=== PATIENT | female | born 1985 | race Caucasian/White ===

== ENCOUNTER 2018-06-22 16:40 | Emergency (ER) | payer OTHER ==
[2018-06-22 16:51] VITALS: BP 145/89
--- NOTE | 2018-06-22 16:54 | ED Physician Documentation ---
PD HPI SKIN - Stated complaint Stated Complaint: ALLERGIC REACTION - Chief complaint Chief Complaint: Allergic Rx - History obtained from History obtained from: Patient - History of Present Illness Timing - onset: Yesterday Timing - duration: Days (1) Timing - details: Abrupt onset (she had onset of hives and some throat swelling after eating some food that unknowingly had some cinammon in it. She has had similar reactions to cinammon in the past. Usually symptoms resolve in part of a day, but this has persisted.) Location: Bodywide (itching/redness), Other (also with feeling of swelling/tightness in her throat.) Quality / character: Itchy, Discolored (red). No: Vesicular Improved by: No: Benadryl Associated symptoms: Dyspnea. 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) Recently seen: Not recently seen Review of Systems Constitutional: denies: Fever, Myalgias Nose: denies: Rhinorrhea / runny nose, Congestion Throat: denies: Sore throat Cardiac: denies: Chest pain / pressure, Palpitations Respiratory: denies: Cough GI: denies: Abdominal Pain, Nausea, Vomiting, Diarrhea Neurologic: denies: Near syncope, Altered mental status PD PAST MEDICAL HISTORY - Past Medical History Cardiovascular: None Respiratory: None Endocrine/Autoimmune: Other (food allergies) - Present Medications Home Medications: Ambulatory Orders Medication Instructions Recorded Confirmed Cetirizine [ZyrTEC] 10 mg PO DAILY #15 tablet 06/22/18 Dexamethasone [Decadron] 4 mg PO DAILY #5 tablet 06/22/18 Famotidine 20 mg PO DAILY #15 tablet 06/22/18 - Allergies Allergies/Adverse Reactions: Allergies Allergy/AdvReac Type Severity Reaction Status Date / Time cinnamon Allergy Hives Verified 06/22/18 16:51 meperidine [From Demerol] Allergy Unknown Verified 06/22/18 16:51 PD ED PE NORMAL - Vitals Vital signs reviewed: Yes - General General: Alert and oriented X 3, No acute distress, Well developed/nourished - HEENT HEENT: Pharynx benign (minimal swelling of uvula. ) - Neck Neck: Supple, no meningeal sign, No adenopathy - Cardiac Cardiac: RRR, No murmur - Respiratory Respiratory: Clear bilaterally - Abdomen Abdomen: Soft, Non tender - Derm Derm: Normal color, Warm and dry, Other (blotchy redness slightly raised without vesicles c/w hives) - Extremities Extremities: No edema - Neuro Neuro: Alert and oriented X 3, No motor deficit, Normal speech Results - Vitals Vitals: Oxygen O2 Source Room air PD MEDICAL DECISION MAKING - ED course Complexity details: re-evaluated patient (improved symptoms with meds), considered differential, d/w patient Departure - Departure Disposition: 01 Home, Self Care Clinical Impression: Allergic reaction to food Qualifiers: Encounter type: initial encounter Qualified Code(s): T78.1XXA - Other adverse food reactions, not elsewhere classified, initial encounter Condition: Stable Record reviewed to determine appropriate education?: Yes Instructions: ED Allergic Reaction General Other Prescriptions: Cetirizine [ZyrTEC] 10 mg PO DAILY #15 tablet Dexamethasone [Decadron] 4 mg PO DAILY #5 tablet Famotidine 20 mg PO DAILY #15 tablet Comments: You can continue the Benadryl every 6 hours if needed for itching. Add famotidine and cetirizine 2 types of antihistamines that are longer acting daily for the next several days. Also Decadron steroid daily for the next 3-5 days. This should outlast the reaction and allow the immune system to calm down better. Recheck if not better over the next few days. Discharge Date/Time: 06/22/18 18:03
[2018-06-22] MEDS ORDERED: DEXAMETHASONE 10 MG/ML VIAL PO STA (17:26)
[2018-06-22] MEDS ORDERED: FAMOTIDINE 20 MG TABLET PO STA (17:26)
== END 2018-06-22 18:03 | disposition home or self-care (01) ==
LOC: ED 16:40
DX: T78.1XXA Other adverse food reactions, not elsewhere classified, initial encounter (principal)
CPT/HCPCS: 99283; A9270